=== PATIENT | male | born 1990 | race Caucasian/White ===

== ENCOUNTER 2017-07-13 22:22 | Emergency (ER) | payer SELFPAY | END 2017-07-13 23:02 | disposition home or self-care (01) | LOC: ERS 22:22 | DX: Z77.21 Contact with and (suspected) exposure to potentially hazardous body fluids (principal) | CPT/HCPCS: 36415; 86706; 86803; 87389; 99283 ==

== ENCOUNTER 2018-04-18 23:03 | Emergency (ER) | payer OTHER, SELFPAY ==
[2018-04-19 00:45] LABS: HIV (1/2) Antibody/Antigen Non-Reactive (NonReactive); HIV 1/2 INDEX 0.11 S/CO (<1.00); Hep C IgG Ab Non-Reactive (NonReactive)
[2018-04-19 01:35] LABS: Hep B Surf AB Reactive (NonReactive)
[2018-04-19 01:36] LABS: HBSAB Concentration 18186.47 mIU/mL
== END 2018-04-19 00:08 | disposition home or self-care (01) ==
LOC: ERS 23:03
DX: Z77.21 Contact with and (suspected) exposure to potentially hazardous body fluids (principal)
CPT/HCPCS: 86706; 86803; 87389; 99283

== ENCOUNTER 2020-06-06 14:06 | Outpatient (CLI) | payer OTHER ==
--- NOTE | 2020-06-06 14:47 | ULT ---
LEFT LOWER EXTREMITY VENOUS DUPLEX EXAM: 06/06/20 HISTORY: Elevated D-dimer and left leg trauma, swelling and edema. Real time color Doppler evaluation of the left lower extremity was performed from groin to calf. This includes evaluation of the common femoral, superficial and profunda femoral, saphenous, popliteal an d posterior tibial veins. This shows a patent deep venous system. There is normal compressibility and augmentation. There is no evidence of DVT. IMPRESSION: No evidence of DVT in the left lower extremity. POS: [id number]
== END 2020-06-06 14:07 | disposition home or self-care (01) ==
LOC: ULT 14:06
PROVIDERS: ATTEND Nurse Practitioner Family
DX: R79.1 Abnormal coagulation profile (principal)

== ENCOUNTER 2025-07-31 22:19 | Emergency (ER) | payer BC, OTHER ==
[2025-07-31] MEDS ORDERED: Boostrix 0.5 ML (Tdap) VIAL (>/=7 yrs of age) ONE (23:04)
[2025-07-31] MEDS ORDERED: Amoxicillin/Potassium Clav 875 MG TAB ONE (23:04)
== END 2025-07-31 23:14 | disposition home or self-care (01) ==
LOC: ERS 22:19 → EEVIPCON 22:19 → ERS 23:14
DX: S81.851A Open bite, right lower leg, initial encounter (principal); Z23 Encounter for immunization; W54.0XXA Bitten by dog, initial encounter
CPT/HCPCS: 90471; 90715